=== PATIENT | male | born 1980 | race Caucasian/White ===

== ENCOUNTER 2017-06-26 03:30 | Emergency (ER) | payer SELFPAY ==
[~2017-06-26] VITALS: Ht 172.7 cm; Wt 81.6 kg
[2017-06-26 03:36] VITALS: BP 121/67
== END 2017-06-26 03:56 | disposition home or self-care (01) ==
LOC: ER 03:31
DX: A64 Unspecified sexually transmitted disease (principal); Z60.2 Problems related to living alone
CPT/HCPCS: 99283; A4606; Z7610